=== PATIENT | male | born 1960 | race Two or more races ===

== ENCOUNTER → 2018-01-14 | Emergency (ER) | payer OTHER ==
[~2018-01-14] VITALS: Ht 177.8 cm; Wt 97.5 kg
[~2018-01-14] MED LIST: AVALIDE 150-12.1 TA1 PO; KETO10TA2 PO; PERCOCET 5-3251 EACH PO; TAMS0.4C PO; TOPROL XL50 MG PO
== END | disposition home or self-care (01) ==
LOC: ER 09:00
DX: N20.1 Calculus of ureter (principal); N20.0 Calculus of kidney

== ENCOUNTER → 2023-02-22 | Emergency (ER) | payer OTHER ==
[~2023-02-22] VITALS: Ht 177.8 cm; Wt 94.3 kg
[~2023-02-22] MED LIST changes: +CANDESARTAN-HC1 EAC1 PO; +ROSUVASTATIN CAL5 MG PO
== END | disposition left against medical advice (07) ==
LOC: ER 13:06
DX: Z53.21 Procedure and treatment not carried out due to patient leaving prior to being seen by health care provider (principal)